=== PATIENT | female | born 1985 | race Caucasian/White ===

== ENCOUNTER → 2019-01-06 | Outpatient (CLI) | payer OTHER ==
--- NOTE | 2019-01-06 09:58 | KCIC ---
Bilateral diagnostic digital mammograms with 3-D tomosynthesis: Reason for examination: Chronic right lateral breast pain. Family history of breast cancer. Baseline exam. Bilateral mammograms in CC and oblique projections were obtained with 2-D imaging and 3-D tomosynthesis imaging on a Siemens Inspiration unit and reviewed on the workstation. Interpretation was made with the benefit of CAD. The skin and nipples show no abnormalities. No abnormal axillary lymph nodes are seen. The breast parenchyma is extremely dense. (Breast density: Category D.) There is some focal fibroglandular tissue present in the 5:30 C position of the right inframammary fold region. There is also some patchy parenchymal asymmetry medially in the 9:00 C position near the cleavage region of the left breast. There is also a small circumscribed nodule at the 2:30 B position of the left breast. These areas will be further evaluated with ultrasound. There are no other dominant masses, suspicious calcifications or architectural distortion. Impression: Patchy areas of parenchymal asymmetry at the 5:30 C position of the right breast and at the 9:00 C position of the left breast. Small circumscribed nodule at the 2:30 position of the left breast. Ultrasound to follow. Your patient's mammogram demonstrates that she has dense breast tissue (breast density category C or D), which could hide abnormalities, and if she has other risk factors for breast cancer that have been identified, she might benefit from supplemental screening tests that may be suggested by you as her ordering physician. Dense breast tissue, in and of itself, is a relatively common condition. Therefore, this information is not provided to cause undue concern, but rather to raise your awareness and to promote discussion with your patient regarding the presence of other risk factors, in addition to dense breast tissue. Your patient's mammography results will be sent to her. BI-RAD Category 0: Incomplete. Needs additional imaging evaluation. Bilateral breast ultrasound: Ultrasound examination was performed bilaterally with areas of mammographic and clinical concern and at the axilla. The right breast shows no discrete cystic or solid nodules or architectural distortions and no abnormal appearing lymph nodes are seen in the right axilla. The left breast shows a small simple cyst in the 2:30 position 7 cm from the nipple measuring 7.2 mm in greatest dimension. No other cystic or solid nodules are seen. No abnormal appearing lymph nodes are seen in the left axilla. IMPRESSION: 7.2 mm cyst at the 2:30 position of the left breast. No other focal abnormality seen in either breast. Recommend routine mammographic follow-up. BI-RADS Category 2: Benign. "Our facility is accredited by the [employer] Mammography Program." This patient's information has been entered into a reminder system for the patient to be notified with the results of her examination and a target date for the next mammogram. Electronically signed by: Hillary Everett MD (01/06/2019 9:56 AM) [id number]
== END | disposition home or self-care (01) ==
LOC: KCIC MAMMO 07:37
PROVIDERS: ATTEND Family Medicine
DX: N60.02 Solitary cyst of left breast (principal); N63.21 Unspecified lump in the left breast, upper outer quadrant; G89.29 Other chronic pain; Z80.3 Family history of malignant neoplasm of breast
CPT/HCPCS: 76641; 77066; G0279; 77062